=== PATIENT | male | born 2000 ===

== ENCOUNTER 2023-01-14 08:00 | Outpatient (RCR) | payer OTHER ==
[2022-12-30 13:00] VITALS: BP 132/78; PULSE 109; TEMP 98
[2022-12-30 13:20] LABS: BASO # 0.1 K/mm3 (0.0-0.2); BASO % 1.2 % (0.0-2.0); EOS # 0.2 K/mm3 (0.0-0.7); EOS % 2.3 % (0.0-4.0); GRAN # 3.1 K/mm3 (1.4-6.5); GRAN % 46.8 % (42.2-75.2); HEMATOCRIT 37.2 % (42.0-52.0); HEMOGLOBIN 12.5 g/dl (13.5-18.0); LYMPH # 2.7 K/mm3 (1.2-3.4); LYMPH % 41.3 % (20.0-51.0); MEAN CELL VOLUME 82 fl (80.0-100.0); MEAN CORPUSCULAR HEMOGLOBIN 28 pg (27-31); MEAN CORPUSCULAR HGB CONC 34 g/dl (33.0-37.0); MEAN PLATELET VOLUME 11.1 fl (7.4-10.4); MONO # 0.5 K/mm3 (0.1-0.6); MONO % 8.2 % (1.7-9.3); PLATELET COUNT 198 K/mm3 (130-400); RED BLOOD COUNT 4.55 M/mm3 (4.20-5.60); REDCELL DISTRIBUTION WIDTH-CV 15.3 % (11.5-14.5)
[2022-12-30 13:39] LABS: ALBUMIN 3.8 gm/dL (3.5-5.0); BILIRUBIN,TOTAL 0.4 mg/dL (0.2-1.2); C-REACTIVE PROTEIN 0.05 mg/dL (0.00-0.50); CALCIUM 9.3 mg/dL (8.4-10.2); CREATININE, serum 1.09 mg/dL (0.72-1.25); POTASSIUM 5.4 mmol/L (3.5-4.5); TOTAL PROTEIN 7.8 gm/dL (6.2-8.1)
[2022-12-30 13:42] LABS: ERYTHROCYTE SEDIMENTATION RATE 18 mm/hr (0-15)
[2023-01-07 08:43] VITALS: BP 130/82; PULSE 103; TEMP 98.3
[2023-01-07 08:45] LABS: BASO # 0.1 K/mm3 (0.0-0.2); EOS # 0.2 K/mm3 (0.0-0.7); EOS % 3.1 % (0.0-4.0); GRAN # 3.4 K/mm3 (1.4-6.5); HEMOGLOBIN 10.4 g/dl (13.5-18.0); LYMPH # 1.8 K/mm3 (1.2-3.4); MEAN CELL VOLUME 83 fl (80.0-100.0); MEAN CORPUSCULAR HEMOGLOBIN 27 pg (27-31); MEAN CORPUSCULAR HGB CONC 33 g/dl (33.0-37.0); MEAN PLATELET VOLUME 11.9 fl (7.4-10.4); MONO # 0.5 K/mm3 (0.1-0.6); MONO % 8.7 % (1.7-9.3); PLATELET COUNT 157 K/mm3 (130-400); RED BLOOD COUNT 3.79 M/mm3 (4.20-5.60); REDCELL DISTRIBUTION WIDTH-CV 15.1 % (11.5-14.5)
[2023-01-07 08:49] LABS: HEMATOCRIT 31.5 % (42.0-52.0)
[2023-01-07 09:04] LABS: ALBUMIN 3.3 gm/dL (3.5-5.0); BILIRUBIN,TOTAL 0.3 mg/dL (0.2-1.2); C-REACTIVE PROTEIN 0.26 mg/dL (0.00-0.50); CALCIUM 8.7 mg/dL (8.4-10.2); CREATININE, serum 2.16 mg/dL (0.72-1.25); POTASSIUM 5.5 mmol/L (3.5-4.5); TOTAL PROTEIN 6.7 gm/dL (6.2-8.1)
[2023-01-07 09:10] LABS: ERYTHROCYTE SEDIMENTATION RATE 14 mm/hr (0-15)
[~2023-01-14] VITALS: Ht 180.3 cm; Wt 79.0 kg
[~2023-01-14 08:00] MED LIST: AMOXICILLIN 50500 MG PO; CIPRO 500MG TA500 MG; DOXYCYCLINE HY100 MG; LEVEMIR FLEX100 U/ML SQ; NOVOLOG 100U100 U/M1 SQ; ROCEPHIN 2GM VIAL21 IV; ROXICODONE 55 MG/TAB PO
--- NOTE | 2023-01-14 08:19 | NUR ---
Attempt to draw blood from PICC line, blood return slow. Line is power flushed, causing pt to cough and report discomfort in throat. ANNAMARIE Spence is notified of complaints. Lab called for peripheral draw, we will await results and call PCP, as pt had orders for potential PICC DC today after appt with his surgeon.
[2023-01-14 08:32] LABS: BASO # 0.1 K/mm3 (0.0-0.2); BASO % 0.8 % (0.0-2.0); EOS # 0.2 K/mm3 (0.0-0.7); EOS % 3.1 % (0.0-4.0); GRAN # 3.4 K/mm3 (1.4-6.5); GRAN % 55.3 % (42.2-75.2); HEMOGLOBIN 11.1 g/dl (13.5-18.0); LYMPH % 31.7 % (20.0-51.0); MEAN CELL VOLUME 84 fl (80.0-100.0); MEAN CORPUSCULAR HEMOGLOBIN 27 pg (27-31); MEAN CORPUSCULAR HGB CONC 32 g/dl (33.0-37.0); MEAN PLATELET VOLUME 11.3 fl (7.4-10.4); MONO # 0.6 K/mm3 (0.1-0.6); MONO % 8.9 % (1.7-9.3); PLATELET COUNT 164 K/mm3 (130-400); REDCELL DISTRIBUTION WIDTH-CV 14.7 % (11.5-14.5)
[2023-01-14 08:34] LABS: HEMATOCRIT 34.3 % (42.0-52.0)
[2023-01-14 08:52] LABS: ALBUMIN 3.4 gm/dL (3.5-5.0); BILIRUBIN,TOTAL 0.4 mg/dL (0.2-1.2); C-REACTIVE PROTEIN 0.1 mg/dL (0.00-0.50); CALCIUM 8.6 mg/dL (8.4-10.2); CREATININE, serum 1.13 mg/dL (0.72-1.25); POTASSIUM 4.9 mmol/L (3.5-4.5); TOTAL PROTEIN 6.9 gm/dL (6.2-8.1)
[2023-01-14 08:55] VITALS: BP 119/84; PULSE 110; TEMP 98.1
[2023-01-14 09:32] LABS: ERYTHROCYTE SEDIMENTATION RATE 21 mm/hr (0-15)
--- NOTE | 2023-01-14 10:15 | NUR ---
Pt discharged via ambulatory.
== END 2023-01-14 10:45 | disposition home or self-care (01) ==
LOC: EUO 08:00
PROVIDERS: Family Medicine
DX: M86.9 Osteomyelitis, unspecified (principal); E10.10 Type 1 diabetes mellitus with ketoacidosis without coma

== ENCOUNTER 2023-02-21 08:00 | Outpatient (RCR) | payer MEDICAID ==
[2023-02-14 08:30] VITALS: BP 116/76; PULSE 114; TEMP 97.8
[2023-02-14 08:47] LABS: BASO # 0.1 K/mm3 (0.0-0.2); BASO % 1.1 % (0.0-2.0); EOS # 0.2 K/mm3 (0.0-0.7); EOS % 3.7 % (0.0-4.0); GRAN # 1.7 K/mm3 (1.4-6.5); GRAN % 30.8 % (42.2-75.2); HEMOGLOBIN 11.9 g/dl (13.5-18.0); LYMPH # 2.9 K/mm3 (1.2-3.4); MEAN CELL VOLUME 82 fl (80.0-100.0); MEAN CORPUSCULAR HEMOGLOBIN 28 pg (27-31); MEAN CORPUSCULAR HGB CONC 34 g/dl (33.0-37.0); MEAN PLATELET VOLUME 11.6 fl (7.4-10.4); MONO # 0.6 K/mm3 (0.1-0.6); MONO % 10.2 % (1.7-9.3); PLATELET COUNT 207 K/mm3 (130-400); RED BLOOD COUNT 4.32 M/mm3 (4.20-5.60); REDCELL DISTRIBUTION WIDTH-CV 14.1 % (11.5-14.5)
[2023-02-14 08:49] LABS: HEMATOCRIT 35.3 % (42.0-52.0)
[2023-02-14 09:02] LABS: ALBUMIN 3.6 gm/dL (3.5-5.0); BILIRUBIN,TOTAL 0.3 mg/dL (0.2-1.2); C-REACTIVE PROTEIN 0.08 mg/dL (0.00-0.50); CALCIUM 9.3 mg/dL (8.4-10.2); CREATININE, serum 1.28 mg/dL (0.72-1.25); POTASSIUM 4.6 mmol/L (3.5-4.5); TOTAL PROTEIN 7.1 gm/dL (6.2-8.1)
[~2023-02-21] VITALS: Ht 180.3 cm; Wt 76.1 kg
[~2023-02-21 08:00] MED LIST changes: +ROCEPHIN 2GM VIAL21 IJ
[2023-02-21 13:45] VITALS: BP 119/81; PULSE 70; TEMP 97.6
[2023-02-21 13:47] LABS: HEMATOCRIT 37.4 % (42.0-52.0); HEMOGLOBIN 12.4 g/dl (13.5-18.0); MEAN CELL VOLUME 84 fl (80.0-100.0); MEAN CORPUSCULAR HEMOGLOBIN 28 pg (27-31); MEAN CORPUSCULAR HGB CONC 33 g/dl (33.0-37.0); MEAN PLATELET VOLUME 11.8 fl (7.4-10.4); PLATELET COUNT 200 K/mm3 (130-400); RED BLOOD COUNT 4.47 M/mm3 (4.20-5.60); REDCELL DISTRIBUTION WIDTH-CV 14.3 % (11.5-14.5)
[2023-02-21 14:01] LABS: ALBUMIN 3.7 gm/dL (3.5-5.0); BILIRUBIN,TOTAL 0.3 mg/dL (0.2-1.2); C-REACTIVE PROTEIN 0.04 mg/dL (0.00-0.50); CALCIUM 8.8 mg/dL (8.4-10.2); CREATININE, serum 1.13 mg/dL (0.72-1.25); POTASSIUM 4.8 mmol/L (3.5-4.5); TOTAL PROTEIN 7.2 gm/dL (6.2-8.1)
--- NOTE | 2023-02-21 14:25 | NUR ---
Pt requested blood sugar to be tested after Midline removal.Accucheck show BG in 30s..Snacks and juice provided,second check revealds blood glucose of 45.Glucerna provided.Pt up to 193 upon discharge.Pt discharged ambulatory at this time.
== END 2023-02-21 14:27 | disposition home or self-care (01) ==
LOC: EUO 08:00
PROVIDERS: Family Medicine
DX: M86.141 Other acute osteomyelitis, right hand (principal)